=== PATIENT | female | born 1950 | race Caucasian/White ===

== ENCOUNTER → 2016-03-17 | Outpatient (CLI) | payer OTHER, MEDICARE ==
--- NOTE | 2016-03-18 13:22 | MR ---
MRI of the Left Hip Without Contrast History: Greater trochanteric pain, evaluate for bursitis or tendinopathy. Technique: Large [id number] axial and coronal MR sequences of the pelvis are followed by small fie ld-of-view sequences over the left hip in three planes. Findings: Detailed imaging of the left hip demonstrates significant gluteus minimus tendinopathy and peritendinosis with partial tear over the anterior aspect of the left greater trochanter. Gluteus med ius is intact. Within the hip joint, there is evidence of a linear nondisplaced tear involving the anterior acetabul ar labrum, extending from the 3 o'clock position through the 12 o'clock position, with associated lab ral maceration and fraying, without displacement. The posterior labrum is intact and the posterior baker perior labrum is intact. Articular cartilage of the hip joint is intact. Ligamentum teres is intact. No hip joint effusion. On large [id number] imaging, survey of the right hip is unremarkable. The right gluteal tendons ar e intact. Hamstring tendon origins are intact. Sacroiliac joints and symphysis pubis appear normal. N o peritoneal free fluid or masses identified. Marrow signal intensity appears benign. Impression: 1. Significant gluteus minimus tendinopathy and peritendinosis with mild partial tear at the greater trochanteric attachment. This lesion is a reasonable target for PRP treatment as clinically appropria te. No associated bursitis. 2. Nondisplaced tear of the anterior superior acetabular labrum, left hip.
== END ==
LOC: FIMAGING 09:41
PROVIDERS: ATTEND Orthopaedic Surgery
DX: M25.552 Pain in left hip (principal); M76.02 Gluteal tendinitis, left hip; S73.192D Other sprain of left hip, subsequent encounter

== ENCOUNTER → 2016-04-24 | Outpatient (CLI) | payer OTHER ==
[~2016-04-24] MED LIST: BUPIVACAINE 0.25% 30 ML SDV ONE; LIDOCAINE 1% 30 ML SDV ONE; NA BICARBONATE 50 MEQ/50 ML VIAL ONE
== END ==
LOC: FIMAGING 07:29
PROVIDERS: ATTEND Radiology Diagnostic Radiology
PROC: 3E0234Z Introduction of Serum, Toxoid and Vaccine into Muscle, Percutaneous Approach (ICD-10-PCS; principal; 2016-04-24)
DX: M76.02 Gluteal tendinitis, left hip (principal)

== ENCOUNTER → 2016-06-12 | Outpatient (CLI) | payer OTHER, MEDICARE | LOC: FIMAGING 10:05 | DX: Z12.31 Encounter for screening mammogram for malignant neoplasm of breast (principal) | CPT/HCPCS: G0202 ==

== ENCOUNTER → 2016-07-18 | Outpatient (CLI) | payer OTHER, MEDICARE | LOC: FIMAGING 09:26 | PROVIDERS: ATTEND Internal Medicine | DX: Z13.820 Encounter for screening for osteoporosis (principal); Z78.0 Asymptomatic menopausal state; Z79.890 Hormone replacement therapy ==

== ENCOUNTER → 2017-06-22 | Outpatient (CLI) | payer OTHER, MEDICARE | LOC: FIMAGING 12:42 | PROVIDERS: ATTEND Internal Medicine | DX: Z12.31 Encounter for screening mammogram for malignant neoplasm of breast (principal) ==

== ENCOUNTER 2017-12-12 11:09 | Emergency (ER) | payer OTHER, MEDICARE ==
--- NOTE | 2017-12-12 12:22 | EDPHY ---
H & P Time Seen by Provider: 12/12/17 11:48 HPI/ROS: CHIEF COMPLAINT: Right ankle infection HISTORY OF PRESENT ILLNESS: 67-year-old immunocompetent female with up-to-date tetanus complaining of progressive erythema to the right medial ankle, just posterior to the medial malleolus. Patient has no history of recurrent skin infection no known history of cutaneous MRSA, return from a trip to [facility] where she notes that the shoe which she was wearing consistently rubbed against this area causing localized irritation. She was seen at urgent care 2 days ago and started on oral Keflex but notes that the erythema has progressed. She is able to bear weight. Denies puncture wound history. Denies fall or trauma. Denies fever chills. Denies flu-like symptoms. PHYSICAL EXAM (Prior to examination, patient consented to physical exam, hands were washed and my usual and customary physical exam procedures followed) 1) GENERAL: Well-developed, well-nourished, alert and oriented. Appears to be in no acute distress. 2) HEAD: Normocephalic 3) HEENT: Pupils equal, round, reactive to light bilaterally. 4) LUNGS: Breathing comfortably. 5) MUSCULOSKELETAL: 4 cm x 4 cm area of erythema, tenderness, induration right medial ankle, posterior to the medial malleolus. Palpation of the Achilles tendon elicits no pain. proximal tibia and fibula nontender .5th MT nontender negative Dietz test, compartments soft 6) SKIN: Erythema to the medial ankle . There is no lymphangitic streaking. No crepitus. 7) VASCULAR: DP,PT pulses and cap refill present and brisk DIFFERENTIAL DIAGNOSIS: in no particular order including but not limited to non purulent cellulitis, purulent cellulitis, abscess, necrotizing fasciitis Smoking Status: Never smoked Constitutional: Initial Vital Signs Temperature (C) 36.7 C 12/12/17 11:25 Heart Rate 76 12/12/17 11:25 Respiratory Rate 16 12/12/17 11:25 Blood Pressure 113/59 L 12/12/17 11:25 O2 Sat (%) 98 12/12/17 11:25 O2 Delivery Mode Room Air Allergies/Adverse Reactions: No Known Allergies Allergy (Unverified 02/12/15 03:28) Home Medications: Medication Instructions Recorded Acyclovir [Zovirax 400 mg (*)] 400 mg PO DAILY 11/22/14 Atenolol [Tenormin 25 mg (*)] 25 mg PO DAILY 11/22/14 Calcium Carb W/Vit D [Calcium Carb 500 mg PO BID 11/22/14 W/Vit D 500/200 (*)] Cetirizine [ZyrTEC 10 mg (*)] 10 mg PO DAILY 11/22/14 Estradiol 0.5 mg PO DAILY 11/22/14 Herbals/Supplements -Info Only 1 ea PO DAILY 11/22/14 Multivitamins [Multivitamin (*)] 1 each PO DAILY 11/22/14 cycloSPORINE 0.05% [Restasis Opht 1 drop EACHEYE BID 11/22/14 Drops(*)] Aspirin [Aspirin 81mg (*)] 81 mg PO DAILY #0 tab 11/23/14 Ibuprofen 200 mg PO Q4 #0 capsule 11/23/14 Ondansetron Odt [Zofran Odt] 4 mg PO Q4 PRN #20 tab 11/23/14 Atenolol [Tenormin 25 mg (*)] 25 mg PO BID #30 tab 02/12/15 Amoxicillin Trihydrate 500 mg PO Q8 7 Days cap 12/12/17 [Amoxicillin 500mg cap] Doxycycline Hyclate 100 mg PO BID #14 capsule 12/12/17 Keflex 12/12/17 MDM/Departure - MDM ED Course/Re-evaluation: Doubt necrotizing fasciitis. Doubt abscess. Doubt deep space infection. Doubt systemic disease. I do not think that hospitalization or IV antibiotics are indicated. She has been on 2 days of Keflex. The who is a retired physician requests that these antibiotics be changed. We have discussed initiating empiric oral therapy for treatment of beta-hemolytic strep and MRSA, we discussed regimens including Amoxil + doxycycline, or simply adding Bactrim to her Keflex. Prefers the Amoxil +doxycycline. - Depart Disposition: Home, Routine, Self-Care Clinical Impression: Cellulitis of right ankle Condition: Good Instructions: Cellulitis (ED) Additional Instructions: Return to the ER if you develop redness, swelling, discharge, warmth to the wound, red streaks going up your leg, or any other symptoms that concern you. Prescriptions: Amoxicillin Trihydrate [Amoxicillin 500mg cap] 500 mg PO Q8 7 Days cap Doxycycline Hyclate 100 mg PO BID #14 capsule Referrals: Norah Floyd MD [Primary Care Provider] - 12/15/17
[2017-12-12 13:16] VITALS: BP 106/52
== END 2017-12-12 13:14 | disposition home or self-care (01) ==
DX: L03.115 Cellulitis of right lower limb (principal)

== ENCOUNTER → 2018-05-07 | Outpatient (CLI) | payer OTHER, MEDICARE | LOC: CIMAGING 10:01 | PROVIDERS: ATTEND Internal Medicine | DX: R07.9 Chest pain, unspecified (principal); J45.909 Unspecified asthma, uncomplicated; R91.8 Other nonspecific abnormal finding of lung field; Z87.891 Personal history of nicotine dependence | CPT/HCPCS: 71046-PO ==

== ENCOUNTER → 2018-05-11 | Outpatient (CLI) | payer OTHER, MEDICARE | LOC: CIMAGING 10:07 | PROVIDERS: ATTEND Internal Medicine | DX: R91.1 Solitary pulmonary nodule (principal); J47.9 Bronchiectasis, uncomplicated; J98.09 Other diseases of bronchus, not elsewhere classified; I31.3 Pericardial effusion (noninflammatory) | CPT/HCPCS: 71250-PO ==

== ENCOUNTER → 2018-05-14 | Outpatient (CLI) | payer OTHER, MEDICARE | LOC: FIMAGING 12:47 | PROVIDERS: ATTEND Internal Medicine | DX: N64.4 Mastodynia (principal) ==

== ENCOUNTER → 2018-07-19 | Outpatient (CLI) | payer OTHER, MEDICARE | LOC: FIMAGING 12:17 | PROVIDERS: ATTEND Internal Medicine | DX: Z13.820 Encounter for screening for osteoporosis (principal); Z78.0 Asymptomatic menopausal state; M85.89 Other specified disorders of bone density and structure, multiple sites ==